=== PATIENT | female | born 1965 | race Two or more races ===

== ENCOUNTER 2017-01-15 14:32 | Emergency (ER) | payer OTHER ==
[~2017-01-15] VITALS: Ht 160 cm; Wt 62.4 kg
[2017-01-15 15:18] LABS: HEMATOCRIT 37.9 % (34.6-47.8); HEMOGLOBIN 12.7 g/dL (11.7-16.4); WHITE BLOOD COUNT 5.7 x10^3/uL (3.4-10)
[2017-01-15 15:29] LABS: BLOOD UREA NITROGEN 12 mg/dL (7-18)
[2017-01-15 15:35] LABS: IS PT STATUS REG ER OR PRE ER? YES
[2017-01-15 16:47] VITALS: BP 157/103
== END 2017-01-15 17:51 | disposition home or self-care (01) ==
LOC: ED 15:42
DX: R07.89 Other chest pain (principal); I10 Essential (primary) hypertension; F32.9 Major depressive disorder, single episode, unspecified
CPT/HCPCS: 36415; 71020; 80048; 81003; 82040; 83880; 84484; 85025; 85379; 93005; 99285